=== PATIENT | female | born 1995 | race Caucasian/White ===

== ENCOUNTER 2017-12-08 19:57 | Emergency (ER) | payer OTHER ==
--- NOTE | 2017-12-08 20:24 | EDPHY ---
General Time Seen by Provider: 12/08/17 20:12 Narrative: CHIEF COMPLAINT: Abdominal and pelvic pain HISTORY OF PRESENT ILLNESS: Patient presents per private vehicle with complaints of abdominal pelvic pain. This is left lower quadrant and left pelvis. Started this morning. It has been constant duration. Mild this morning. Now moderate to severe. Worse with palpation and movement. Radiates into the back. No vaginal bleeding or discharge. No fever. No chest pain, cough or shortness of breath. No flank tenderness. She was seen at [facility] at earlier today and diagnosed with urinary tract infection and "pelvic disease." She was prescribed Macrobid and doxycycline. She went to the pharmacy at 6:00 p.m., but she decided to come here as her pain has been steadily worsening throughout the day. Nausea but no vomiting. Decreased appetite. Reports sexual activity with 1 male partner both protected and protect over the past 30 days. No other associated complaints or modifying factors. REVIEW OF SYSTEMS: 10 systems were reviewed and negative with the exception of the elements mentioned in the history of present illness. PCP: [facility] at SPECIALISTS: None PAST MEDICAL HISTORY: Uncomplicated. No history of ovarian cyst or torsion PAST SURGICAL HISTORY: No abdominal surgeries SOCIAL HISTORY: Nonsmoker. Denies any drug or alcohol use. [employer] student. Originally from [place] FAMILY HISTORY: Noncontributory EXAMINATION: General Appearance: Alert, no distress. Tearful. Conversing in full sentences. Head: normocephalic, atraumatic Eyes: Pupils equal and round, no conjunctival pallor or injection ENT, Mouth: Mucous membranes moist Neck: Normal inspection, supple, non-tender Respiratory: Lungs are clear to auscultation Cardiovascular: Regular rate and rhythm. No murmur Gastrointestinal: Abdomen is soft and nondistended. There is tenderness in the left lower quadrant pelvis. No guarding. No tympany. No rigidity. Bowel sounds are present all 4 quadrants. There is no CVA tenderness on either side. : Pelvic exam deferred Back: non-tender, no bony abnormalities Neurological: A&O, nonfocal, normal gait Skin: Warm and dry, no rash Extremities: Nontender, no pedal edema Psychiatric: Mood and affect normal DIFFERENTIAL DIAGNOSES: Including but not limited to ovarian torsion, ovarian cysts, ureteral stone, pelvic inflammatory disease, tubo-ovarian abscess, ectopic , , renal colic, diverticulitis, colitis MDM: 8:20 p.m. Left lower abdominal pain and left pelvic pain. Her vital signs are within normal limits. She does not meet SIRS criteria. She is very tearful does have tenderness but no guarding and a nonsurgical abdomen. I did immediately ordered an ultrasound of the pelvis to rule out torsion. Laboratory studies obtained. I have ordered pain medication, IV fluid and will monitor. 9:30 p.m. Laboratory studies reveal urinary tract infection with microscopic hematuria, minimal leukocytosis. Lipase and liver function tests are normal. Renal function normal. Notified by radiologist Dr. Cameron. Ultrasound of the pelvis reveals no acute abnormality. Ovaries well visualized. 9:35 p.m. Patient re-evaluated. Her pain is currently 0/10. Her abdominal examination is benign. I have ordered IV Rocephin and IV fluid and will re-evaluate. She is declining CT scan at this time. 10:00 p.m. Patient re-evaluated. She is feeling significantly better and would like to go home. She does not want to pursue any imaging. I discussed transitioning from her Macrobid to Keflex. She received 1st dose of cephalosporin IV here. We discussed short course of pain medication, nausea medication and strict ED precautions. I would like her to return here tomorrow morning if she does not continue to have complete resolution of her pain. She is to return sooner for any return of pain, fever, pelvic pain, nausea vomiting. We discussed the ultrasound was normal with that she may have intermittent abnormalities in the pelvis that were not being captured today, warranting return to the emergency department. I stressed the importance of returning for any return of pain she verbalizes. She will follow up with [facility] at on Friday and return here accordingly if needed. Discharged home stable condition, fully ambulatory with no pain and a normal abdominal examination at this time. SUPERVISION: Patient was independently examined, but I discussed the case with my secondary supervising physician Dr. Mejía CONSULTATION: - History Smoking Status: Never smoked - Objective Vital Signs: Initial Vital Signs Temperature (C) 98.8 F 12/08/17 20:00 Heart Rate 92 12/08/17 20:00 Respiratory Rate 16 12/08/17 20:00 Blood Pressure 127/84 H 12/08/17 20:00 O2 Sat (%) 97 12/08/17 20:00 O2 Delivery Mode Room Air Allergies/Adverse Reactions: amoxicillin Allergy (Verified 12/08/17 20:02) Home Medications: Medication Instructions Recorded Cephalexin [Keflex] 500 mg PO TID 7 Days cap 12/09/17 Laboratory Results: Laboratory Results 12/08/17 20:29 12/08/17 20:29 Medications Given: Discontinued Medications Cephalexin (Keflex 500 Mg Prepack#4) 1 btl TAKEHOME EDNOW ONE PRN Reason: Protocol Stop: 12/08/17 22:17 Last Admin: 12/08/17 22:41 Dose: 1 btl Sodium Chloride (Ns) 1,000 mls @ 0 mls/hr IV EDNOW ONE; Wide Open PRN Reason: Protocol Stop: 12/08/17 20:32 Last Admin: 12/08/17 20:39 Dose: 1,000 mls Ceftriaxone Sodium/Dextrose (Rocephin 1 Gm (Premix)) 50 mls @ 100 mls/hr IV EDNOW ONE PRN Reason: Protocol Stop: 12/08/17 22:00 Last Admin: 12/08/17 21:41 Dose: 50 mls Sodium Chloride (Ns) 1,000 mls @ 0 mls/hr IV EDNOW ONE; Wide Open PRN Reason: Protocol Stop: 12/08/17 21:32 Last Admin: 12/08/17 21:41 Dose: 1,000 mls Morphine Sulfate (Morphine) 4 mg IVP EDNOW ONE Stop: 12/08/17 20:32 Last Admin: 12/08/17 20:40 Dose: 4 mg Ondansetron HCl (Zofran) 4 mg IVP EDNOW ONE Stop: 12/08/17 20:32 Last Admin: 12/08/17 20:40 Dose: 4 mg Ondansetron HCl (Zofran Odt) 4 mg PO EDNOW ONE Stop: 12/08/17 22:17 Last Admin: 12/08/17 22:41 Dose: 4 mg Oxycodone/Acetaminophen (Percocet 5/325mg Prepack#4) 1 btl TAKEHOME EDNOW ONE Stop: 12/08/17 22:17 Last Admin: 12/08/17 22:42 Dose: 1 btl Departure - Departure Disposition: Home, Routine, Self-Care Clinical Impression: Urinary tract infection Qualifiers: Urinary tract infection type: acute cystitis Hematuria presence: with hematuria Qualified Code(s): N30.01 - Acute cystitis with hematuria Abdominal pain Qualifiers: Abdominal location: left lower quadrant Qualified Code(s): R10.32 - Left lower quadrant pain Condition: Fair Instructions: Cephalexin (By mouth), Oxycodone/Acetaminophen (By mouth), Ondansetron (By mouth), Urinary Tract Infection in Women (ED), Acute Abdominal Pain (ED), Flank Pain (ED) Additional Instructions: 1. Recommend switching from Macrobid to Keflex. One pill by mouth 4 times daily for 10-14 days. We provided the 1st 4 pills here for you. 2. Pain medication as provided as needed every 6-8 hours. 3. Contact on-call urologist for definitive care 4. Return to emergency department if you do not have complete resolution of your pain by tomorrow morning. Return sooner for any worsening pain, fever, difficulty urinating Referrals: ALEXYS CARRILLO [Other] - As per Instructions Silvio Awad MD [Medical Doctor] - As per Instructions [facility],. [Clinic] - As per Instructions Stand Alone Forms: School Excuse Prescriptions: Cephalexin [Keflex] 500 mg PO TID 7 Days cap
[2017-12-08] MEDS ORDERED: ONDANSETRON 4 MG/2 ML VIAL IVP ONE (20:31)
[2017-12-08] MEDS ORDERED: NS 1,000 ML IV ONE ×2 (20:31→21:31)
[2017-12-08 20:48] LABS: PLATELET COUNT 311 10^3/uL (150-400)
[2017-12-08 21:42] VITALS: BP 121/75
[2017-12-08] MEDS ORDERED: ONDANSETRON DISINTEGRATING 4 MG TAB PO ONE (22:16)
[2017-12-08] MEDS ORDERED: OXYCODONE/APAP 5/325MG PREPACK#4 BTL TAKEHOME ONE (22:16)
[2017-12-08] MEDS ORDERED: CEPHALEXIN 500MG PREPACK#4 BTL TAKEHOME ONE (22:16)
== END 2017-12-08 22:53 | disposition home or self-care (01) ==
DX: N30.01 Acute cystitis with hematuria (principal); R10.32 Left lower quadrant pain; E86.9 Volume depletion, unspecified
CPT/HCPCS: 96365; J0696; J2270; J2405